=== PATIENT | female | born 1955 | race Caucasian/White ===

== ENCOUNTER 2022-04-20 01:45 | Observation (INO) | payer MEDICARE, OTHER ==
[2022-04-20] VITALS (21 sets, daily range): BP systolic 84–177; BP diastolic 62–101
[~2022-04-20] VITALS: Ht 170.2 cm; Wt 88.6 kg
[2022-04-20] MEDS ORDERED: HEPARIN SOD,PORK IN 0.45% NACL 250 ML IV SCH (02:00)
[2022-04-20 02:39] LABS: BASOPHILS % (AUTO) 0.8 % (0-1); EOSINOPHILS # (AUTO) 0.1 X10'3 (0-0.9); HEMATOCRIT 39.4 % (35.0-45.0); HEMOGLOBIN 13.6 g/dl (12.0-16.0); LYMPHOCYTES # (AUTO) 2.2 X10'3 (1.1-4.8); LYMPHOCYTES % (AUTO) 34.8 % (21-51); MEAN CORPUSCULAR HGB CONC 34.4 g/dL (33.0-36.5); MEAN PLATELET VOLUME 6.7 FL (7.4-10.4); MONOCYTES # (AUTO) 0.4 X10'3 (0-0.9); MONOCYTES % (AUTO) 6.7 % (2-12); NEUTROPHILS # (AUTO) 3.6 X10'3 (1.8-7.7); NEUTROPHILS % (AUTO) 56.7 % (42-75); PLATELET COUNT 238 X10'3 (140-440); RED BLOOD COUNT 4.24 X10'6 (4.20-5.60); RED CELL DISTRIBUTION WIDTH 13.4 % (11.5-14.5); WHITE BLOOD COUNT 6.4 X10'3 (4.5-11.0)
[2022-04-20 02:53] LABS: ALANINE AMINOTRANSFERASE 35 U/L (12-78); ALBUMIN 3.4 G/DL (3.4-5.0); ALBUMIN/GLOBULIN RATIO 1.1 (1.1-1.5); ALKALINE PHOSPHATASE 53 IU/L (46-116); ANION GAP 11 (8-16); ASPARTATE AMINO TRANSFERASE 22 U/L (10-37); BILIRUBIN,TOTAL 0.6 MG/DL (0.1-1.0); BLOOD UREA NITROGEN 11 MG/DL (7-18); BUN/CREATININE RATIO 15.3 (6.6-38.0); CALCIUM 7.7 MG/DL (8.5-10.1); CHLORIDE 107 MMOL/L (99-107); CREATININE 0.72 MG/DL (0.40-0.90); GLUCOSE 95 MG/DL (70-104); LIPASE 61 U/L (73-393); POTASSIUM 3.2 MMOL/L (3.5-5.1); SODIUM 140 MMOL/L (135-145); TOTAL CARBON DIOXIDE 21.9 MMOL/L (24-32); TOTAL PROTEIN 6.6 G/DL (6.4-8.2); eGFR 81 ML/MIN
[2022-04-20] MEDS ORDERED: potassium Cl 20 mEq SR tablet PO STA (04:14)
[2022-04-20] MEDS ORDERED: magnesium oxide 400mg tablet PO ONE (04:15)
[2022-04-20 04:29] LABS: MAGNESIUM 1.7 MG/DL (1.5-2.4)
[2022-04-20 04:33] LABS: URINE HCG NEGATIVE (NEG)
[2022-04-20 04:38] LABS: CLARITY,URINE CLEAR (Clear); COLOR,URINE YELLOW (Yellow); GLUCOSE, URINE NEGATIVE (Neg); KETONES,URINE 40 mg/dl (Neg); LEUKOCYTE ESTERASE ,URINE NEGATIVE (Neg); NITRITES, URINE POSITIVE (Neg); OCCULT BLOOD,URINE TRACE-INTACT (Neg); PH,URINE 5.5 (4.8-8.0); PROTEIN,URINE NEGATIVE (Neg)
[2022-04-20 04:40] LABS: UA COLLECTION TYPE CLN CATCH MIDSTREAM
[2022-04-20 04:44] LABS: BACTERIA,URINE 4+ /HPF (Neg); MUCUS STRANDS FEW /LPF (Neg); RBC,URINE 0-2 /HPF (0-2); SQUAMOUS EPITHELIAL CELL,UR FEW /LPF (FEW)
[2022-04-20] MEDS ORDERED: CefTRIAXone/D5W-Rocephin 1gm 50 ML IV ONE (05:10)
[2022-04-20] MEDS ORDERED: acetaminophen 325mg tablet PO PRN (05:50)
[2022-04-20] MEDS ORDERED: ondansetron/PF 4mg/2ml inj IV PRN (05:50)
[2022-04-20] MEDS ORDERED: mag hydrox/Alum hydrox/simeth 30ml oral suspension PO PRN (05:50)
[2022-04-20] MEDS ORDERED: magnesium hydroxide 30ml (MOM) UD suspension PO PRN (05:50)
[2022-04-20] MEDS ORDERED: PERFLUTREN PROTEIN-A MICROSPHR (Optison) 0.22 MG/ML 3ML VIAL IV ONE (05:50)
[2022-04-20] MEDS ORDERED: nitroGLYCERIN 0.4mg SUBLingual tab SL PRN (05:55)
[2022-04-20] MEDS ORDERED: metoprolol tartrate 1mg/ml inj IV PRN (05:55)
[2022-04-20] MEDS ORDERED: regadenoson 0.4mg/5ml syringe IV PRN (05:55)
[2022-04-20] MEDS ORDERED: aminophylline 500mg/20ml vial IV PRN (05:55)
--- NOTE | 2022-04-20 06:30 | NUR ---
Recieved report from Denise.
--- NOTE | 2022-04-20 07:15 | NUR ---
Pt resting , no distress noted, still awaiting bed for admission.
[2022-04-20] MEDS ORDERED: docusate sod 100mg capsule PO SCH (08:00)
--- NOTE | 2022-04-20 09:40 | NUR ---
Pt in no acute distress, continues to be monitored, awaiting stress test.
[2022-04-20] MEDS ORDERED: TOPI50TA24 PO (10:16)
[2022-04-20] MEDS ORDERED: PARO20TA6 PO (10:16)
[2022-04-20] MEDS ORDERED: LEVO50TA PO (10:16)
[2022-04-20] MEDS ORDERED: ELET40TA10 PO (10:30)
--- NOTE | 2022-04-20 12:00 | NUR ---
Pt back from [facility] in no acute distress, connected back to homicide investigator for further observation.
[2022-04-20] MEDS ORDERED: PANT40TA54 PO (15:28)
--- NOTE | 2022-04-20 15:46 | NUR ---
Saadia anand in [facility] - 04/20/22 at 1550 by ADINA Pt d/c home with in good condition,instructions [id number].
--- NOTE | 2022-04-27 09:23 | NUR ---
Case Management DC follow up: Left VM with name ,telephone number, and reason for call.
== END 2022-04-20 16:10 | disposition home or self-care (01) ==
LOC: ER 01:46 → ED HOLD 05:51
PROVIDERS: ADMIT Internal Medicine; ATTEND Internal Medicine
DX: R07.89 Other chest pain (principal); I21.4 Non-ST elevation (NSTEMI) myocardial infarction; R11.10 Vomiting, unspecified; N39.0 Urinary tract infection, site not specified; E03.9 Hypothyroidism, unspecified; F41.8 Other specified anxiety disorders; G43.909 Migraine, unspecified, not intractable, without status migrainosus; K21.9 Gastro-esophageal reflux disease without esophagitis; Z87.891 Personal history of nicotine dependence; Z79.899 Other long term (current) drug therapy
CPT/HCPCS: 36415; 78452; 80053; 81001; 81025; 83690; 83735; 84484; 85025; 85610; 85730; 87077; 87088; 87186; 93005; 93017; 93306; 96365; 96366; 96367; 99284; A9500; G0378; J0696; J2785